=== PATIENT | male | born 1955 | race Caucasian/White ===

== ENCOUNTER 2019-10-29 15:44 | Inpatient (IN) | payer MEDICARE ==
[~2019-10-29] VITALS: Ht 172.7 cm; Wt 64.0 kg
--- NOTE | 2019-10-29 16:00 | NUR ---
PT BIB AMBULANCE FROM [facility] FOR MEDICAL CLEARANCE. PT ON 5150 HOLD, GRAVELY DISABLED. PT A/OX2, CALM, NO DISTRESS NOTED. PT HAS HX OF HYPERTENSION , PACEMAKER ON R CHEST, ASHD,HYPOXIA DUE TO HX OF COPD. V/S STABLE. NO ACUTE DISTRESS NOTED. PT ASSIGNED 1:1 SITTER. PT IN BED SIDE RAILS UP X2 FALL PRECAUTIONS IMPLEMENTED.
[2019-10-29] MEDS ORDERED: ASPI-612 PO (16:22)
[2019-10-29] MEDS ORDERED: ENOX40DI SQ (16:22)
[2019-10-29] MEDS ORDERED: ATOR40TA PO (16:22)
[2019-10-29] MEDS ORDERED: DOCU100C36 PO (16:22)
[2019-10-29] MEDS ORDERED: CLON1TAB12 PO (16:22)
[2019-10-29] MEDS ORDERED: CLOP75TA33 PO (16:22)
--- NOTE | 2019-10-29 16:24 | NUR ---
CALLED U TO GET A ROOM ASSIGNMENT . ROOM ASSIGNED 139 A.
--- NOTE | 2019-10-29 16:36 | NUR ---
GAVE REPORT TO RAE MCCORMICK .
[2019-10-29] MEDS ORDERED: GABA-534 PO (16:41)
[2019-10-29] MEDS ORDERED: INSU100V39 SQ (16:41)
[2019-10-29] MEDS ORDERED: INSU100V7 SQ (16:41)
[2019-10-29] MEDS ORDERED: FURO20TA4 PO (16:41)
[2019-10-29] MEDS ORDERED: PANT40TA4 PO (16:41)
[2019-10-29 17:00] VITALS: BP 109/56
--- NOTE | 2019-10-29 17:00 | NUR ---
Pt. admitted to [facility] , under care of Belongs List completed. ALL BELONGINGS W/ PATIENT.NO COMPLICATIONS DURING TRANSFER.
[2019-10-29] MEDS ORDERED: POLY17PO4 PO (17:01)
[2019-10-29] MEDS ORDERED: [UNRECOGNIZED DRUG - CODE] IVP (17:01)
[2019-10-29] MEDS ORDERED: SPIR25TA6 PO (17:02)
[2019-10-29] MEDS ORDERED: DEXTROSE 50% 50 ML DISP.SYRIN IV PRN (17:45)
[2019-10-29] MEDS ORDERED: LORAZEPAM 0.5 MG TABLET PO PRN (17:45)
[2019-10-29] MEDS ORDERED: MAGNESIUM HYDROXIDE 30 ML LIQUID UDC PO PRN (17:45)
[2019-10-29] MEDS ORDERED: LORAZEPAM 1 MG TABLET PO PRN (17:45)
[2019-10-29] MEDS ORDERED: ACETAMINOPHEN 325 MG TABLET PO PRN (17:45)
[2019-10-29] MEDS ORDERED: MAG HYDROX/AL HYDROX/SIMETH 30 ML LIQUID UDC PO PRN (17:45)
[2019-10-29] MEDS ORDERED: TEMAZEPAM 7.5 MG CAPSULE PO PRN (17:45)
--- NOTE | 2019-10-29 18:20 | NUR ---
GPS: admitting this 64Y male, coming from [facility], patient AOx2-3, patient easily irritable, guarded, needed redirection, advisement was given, patient was seen by Dr. Trivedi and Dr. hatch, orders made and carried out, patient uncooperative during admission, refused to answer assesment question and sign forms, Dr. Trivedi wrote 14 day Hold and gave patient a copy, will continue monitor
--- NOTE | 2019-10-29 18:46 | NUR ---
patient paranoid and delusional, rip off his copy of his 14day hold and verbalizes that it was not existing and his firer watertender is coming tomorrow, will continue monitor
[2019-10-29 20:48] VITALS: BP 96/50
[2019-10-29] MEDS: risperiDONE 1 MG TABLET PO SCH (20:49)
[2019-10-29] MEDS: BLOOD SUGAR DIAGNOSTIC 1 EACH STRIP VI SCH ×3 (20:50→21:39)
[2019-10-29] MEDS: INSULIN REGULAR, HUMAN 300 UNITS/3 ML VIAL SQ PRN (21:19)
--- NOTE | 2019-10-29 21:30 | NUR ---
GPS/RN: RECEIVED PT IN BED ASLEEP, AWAKE TO NAME BUT PT WAS VERY ANGRY WHEN FACE TO FACE INTERVIEW, REFUSED TO TALK AND JUST WANTED TO BE ALONE. PT WAS LEFT TO VENT FEELING. ROUTINE MEDICATIONS WAS INITIALLY REFUSED, PT ALSO REFUSED BLOOD SUGAR CHECK. PT CAME TO NURSING STATION AND ASKED FOR SNACK AND WAS OFFER TO CHECK BLOOD SUGAR AND AGREED. BS/280 WITH 6UNIT INSULIN ADMINISTERED. PT STILL REFUSING ROUTINE MED. EXPLAINED BENEFIT AND RISK FOR NOT TAKING MED. PT WENT BACK TO BED. NO SI INTENT OR THOUGHT OF HURTING SELF OR OTHERS. WILL CONTINUE TO MONITOR.
[2019-10-29] MEDS: GABAPENTIN 300 MG CAPSULE PO SCH (22:00)
[2019-10-30] MEDS: GABAPENTIN 300 MG CAPSULE PO SCH ×3 (06:00→21:03)
[2019-10-30] MEDS: BLOOD SUGAR DIAGNOSTIC 1 EACH STRIP VI SCH ×4 (06:32→20:29)
[2019-10-30 07:30] VITALS: BP 99/59
[2019-10-30 08:36] LABS: BILIRUBIN,TOTAL 0.4 mg/dL (0.2-1.0); CREATININE 0.9 mg/dL (0.6-1.3); POTASSIUM 4.6 mmol/L (3.5-5.1); TOTAL PROTEIN, SERUM 6.8 g/dL (6.4-8.2)
[2019-10-30] MEDS ORDERED: ENOXAPARIN SODIUM 40 MG/0.4 ML DISP.SYRIN SQ SCH (09:00)
[2019-10-30] MEDS: MIRALAX 17 GM POWD.PACK PO SCH (09:44)
[2019-10-30] MEDS: CLOPIDOGREL 75 MG TABLET PO SCH (09:45)
[2019-10-30] MEDS: ATORVASTATIN 40 MG TABLET PO SCH (09:45)
[2019-10-30] MEDS: DOCUSATE SODIUM 100 MG CAPSULE PO SCH ×2 (09:45→17:16)
[2019-10-30] MEDS: FUROSEMIDE 20 MG TABLET PO SCH (09:45)
[2019-10-30] MEDS: ASPIRIN 325 MG TABLET PO SCH (09:45)
[2019-10-30] MEDS: risperiDONE 1 MG TABLET PO SCH ×2 (09:45→20:46)
[2019-10-30] MEDS: PANTOPRAZOLE SODIUM 40 MG TABLET.DR PO SCH (09:45)
[2019-10-30] MEDS: INSULIN GLARGINE,HUM 300 UNITS/3 ML CARTRIDGE SQ SCH ×2 (10:04→20:45)
[2019-10-30] MEDS: INSULIN REGULAR, HUMAN 300 UNIT/3 ML VIAL SQ PRN ×3 (10:05→17:26)
--- NOTE | 2019-10-30 11:08 | NUR ---
Social Work Initial Discharge Plan: Patient has a [address], [place] [address]). Patient is unable to verify address or where he resides. Patient appears to be homeless. This fiction and nonfiction prose writer will find out more information in regards to patient's living arrangement. Patient does not have any contact information at this moment. sanitation worker hosing machinery will work with the patient and the MD regarding appropriate discharge planning. sanitation worker hosing machinery will form a safe and proper discharge.
--- NOTE | 2019-10-30 11:13 | NUR ---
Social Work Note: power lineworker contacted [facility] and requested to speak to foster care social worker Katarzyna Talley, ASW #[id number] ([phone]) but was unavailable. Burr Grinder Jassi was able to give information to this physician underwriter and stated that patient is homeless and was unable to verify address.
--- NOTE | 2019-10-30 11:15 | NUR ---
Social Work Family Contact: Patient does not have any family for this commercial loan underwriter to contact.
[2019-10-30] MEDS: SPIRONOLACTONE 25 MG TABLET PO SCH (11:45)
--- NOTE | 2019-10-30 15:09 | NUR ---
Social Work Individual Therapy Note: groundskeeping maintenance worker met with patient for brief counseling to address patient's delusional thought content. Patient is guarded and is vague with his answers. Patient is disorganized and disoriented. 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 groundskeeping maintenance worker actively listened and provided support.
--- NOTE | 2019-10-30 15:16 | NUR ---
Social Work Coordination: casino gaming worker faxed Román saravia ([phone]) and sent [facility] notes and progress notes. Per Román, he stated that he will get back to this sign writer hand to see if patient is accepted to any of his facilities such as [place] or [place].
[2019-10-30 16:00] VITALS: BP 111/60
--- NOTE | 2019-10-30 16:22 | NUR ---
Social Work Discharge Plan: Per admission, ([phone]) who stated that patient is accepted at [facility].
[2019-10-30] MEDS: INSULIN REGULAR, HUMAN 300 UNITS/3 ML VIAL SQ PRN (20:41)
[2019-10-30 20:54] VITALS: BP 110/63
--- NOTE | 2019-10-30 21:29 | NUR ---
Patient was received in bed, med compliant, cooperative, calm, no behavioral issue. Patient will remain in a psych facility for further evaluation and treatment.
[2019-10-31] MEDS: GABAPENTIN 300 MG CAPSULE PO SCH ×3 (06:00→21:56)
[2019-10-31] MEDS: BLOOD SUGAR DIAGNOSTIC 1 EACH STRIP VI SCH ×4 (06:31→21:24)
[2019-10-31 07:30] VITALS: BP 100/49
[2019-10-31] MEDS: ASPIRIN 325 MG TABLET PO SCH (08:46)
[2019-10-31] MEDS: ATORVASTATIN 40 MG TABLET PO SCH (08:46)
[2019-10-31] MEDS: risperiDONE 1 MG TABLET PO SCH ×2 (08:46→21:18)
[2019-10-31] MEDS: CLOPIDOGREL 75 MG TABLET PO SCH (08:47)
[2019-10-31] MEDS: DOCUSATE SODIUM 100 MG CAPSULE PO SCH ×2 (08:47→16:45)
[2019-10-31] MEDS: FUROSEMIDE 20 MG TABLET PO SCH (08:47)
[2019-10-31] MEDS: PANTOPRAZOLE SODIUM 40 MG TABLET.DR PO SCH (08:47)
[2019-10-31] MEDS: SPIRONOLACTONE 25 MG TABLET PO SCH (08:47)
[2019-10-31] MEDS: MIRALAX 17 GM POWD.PACK PO SCH ×2 (08:48→08:57)
[2019-10-31] MEDS: INSULIN GLARGINE,HUM 300 UNITS/3 ML CARTRIDGE SQ SCH ×2 (08:49→21:41)
--- NOTE | 2019-10-31 09:30 | NUR ---
Gps/Boat Canvas Installer- Patient requested to have his BS check again before givng him his reg. insulin sliding scale, informed it will be high because , he ate a good breakfast,, claimed it is ok, he has someone at home check his glucose. Compliant with his routine am meds. Attended his group therapy.
[2019-10-31] MEDS: INSULIN REGULAR, HUMAN 300 UNIT/3 ML VIAL SQ PRN ×3 (09:35→17:50)
--- NOTE | 2019-10-31 13:00 | NUR ---
Gps/Carriage Rider- Patient tried to pushed exit door again, sounding the alarm , discouraged patient doing so, peers saw them pt. pushing the exit door. Encouraged participating in his group therapy.Monitor for hypo/hyperglycemia.
[2019-10-31 16:00] VITALS: BP 101/56
[2019-10-31] MEDS ORDERED: POTASSIUM CHLORIDE 20 MEQ TAB.PRT.SR PO ONE (19:15)
[2019-10-31 20:00] VITALS: BP 108/66
[2019-10-31] MEDS: INSULIN REGULAR, HUMAN 300 UNITS/3 ML VIAL SQ PRN (21:50)
--- NOTE | 2019-11-01 01:20 | NUR ---
PATIENT RECEIVED IN BED AWAKE. PATIENT COMPLAINT WITH MEDICATION. NO AGGRESSIVE OR COMBATIVE BEHAVIOR NOTED. SAFE ENVIRONMENT PROVIDED. FREQUENT ROUNDING, CLUTTER FREE ENVIRONMENT. BED IN LOWEST POSITION, BED LOCKED, AND BED ALARM ON WHILE IN BED.
[2019-11-01] MEDS: GABAPENTIN 300 MG CAPSULE PO SCH ×3 (06:15→22:01)
[2019-11-01] MEDS: BLOOD SUGAR DIAGNOSTIC 1 EACH STRIP VI SCH ×4 (06:32→20:06)
[2019-11-01 07:30] VITALS: BP 85/45
[2019-11-01] MEDS: INSULIN REGULAR, HUMAN 300 UNIT/3 ML VIAL SQ PRN ×3 (07:54→17:17)
[2019-11-01] MEDS: DOCUSATE SODIUM 100 MG CAPSULE PO SCH ×2 (08:41→16:57)
[2019-11-01] MEDS: INSULIN GLARGINE,HUM 300 UNITS/3 ML CARTRIDGE SQ SCH ×2 (08:41→20:10)
[2019-11-01] MEDS: ATORVASTATIN 40 MG TABLET PO SCH (08:42)
[2019-11-01] MEDS: PANTOPRAZOLE SODIUM 40 MG TABLET.DR PO SCH (08:42)
[2019-11-01] MEDS: risperiDONE 1 MG TABLET PO SCH ×2 (08:42→20:07)
[2019-11-01] MEDS: FUROSEMIDE 20 MG TABLET PO SCH (08:42)
[2019-11-01] MEDS: ASPIRIN 325 MG TABLET PO SCH (08:42)
[2019-11-01] MEDS: CLOPIDOGREL 75 MG TABLET PO SCH (08:42)
[2019-11-01] MEDS: SPIRONOLACTONE 25 MG TABLET PO SCH (08:42)
[2019-11-01] MEDS: MIRALAX 17 GM POWD.PACK PO SCH (08:46)
--- NOTE | 2019-11-01 14:00 | NUR ---
Gps/Applications Support Specialist- Grant DNP, was in to see patient, informed of low b/p , and latest v/s. will review medications. Attended group therapy, participating well. Patient verbalized concerns regarding > BS. , claimed at home he takes only metformin..Complained of Lower ext. are aching , no swelling noted.
--- NOTE | 2019-11-01 15:11 | NUR ---
Social Work Individual Therapy Note: worker's compensation claims examiner met with patient for brief counseling to address patient's delusional thought content. Patient was able to have a meaningful conversation with this ticket writer. Patient continues to have delusional thought content and states that he has a "lines tender" and his lines tender will contact the hospital. worker's compensation claims examiner re-directed the patient to gain insight into his current situation. Patient was unable to recognize or understand. This ticket writer provided active listening.
[2019-11-01 15:18] VITALS: BP 118/73
[2019-11-01 20:05] VITALS: BP 114/50
[2019-11-01] MEDS: INSULIN REGULAR, HUMAN 300 UNITS/3 ML VIAL SQ PRN (20:11)
--- NOTE | 2019-11-01 22:20 | NUR ---
HS BS 301, 10 units Lantus and 8 units coverage administered per sliding scale.
[2019-11-02] MEDS: GABAPENTIN 300 MG CAPSULE PO SCH ×3 (05:28→21:54)
[2019-11-02] MEDS: BLOOD SUGAR DIAGNOSTIC 1 EACH STRIP VI SCH ×4 (06:38→20:15)
[2019-11-02 07:30] VITALS: BP 111/64
[2019-11-02 08:20] LABS: BASOPHILS # (AUTO) 0.1 K/uL (0.0-8.0); EOSINOPHILS # (AUTO) 0.1 K/uL (0.0-0.7); EOSINOPHILS % (AUTO) 0.9 % (0.0-7.0); HEMATOCRIT 32.6 % (36.7-47.1); HEMOGLOBIN 10.9 g/dL (12.5-16.3); LYMPHOCYTES # (AUTO) 1.7 K/uL (20.0-40.0); LYMPHOCYTES % (AUTO) 22.2 % (20.5-51.5); MEAN CORPUSCULAR HEMOGLOBIN 30.5 uug (23.8-33.4); MEAN CORPUSCULAR HGB CONC 33 g/dL (32.5-36.3); MEAN CORPUSCULAR VOLUME 91.3 fL (73.0-96.2); MONOCYTES # (AUTO) 0.6 K/uL (2.0-10.0); MONOCYTES % (AUTO) 7.5 % (0.0-11.0); NEUTROPHILS # (AUTO) 5.3 K/uL (1.8-8.9); NEUTROPHILS % (AUTO) 68.4 % (38.5-71.5); PLATELET COUNT (AUTO) 393 K/uL (152-348); RED BLOOD CELL COUNT(AUTO) 3.57 MIL/uL (4.06-5.63); WHITE BLOOD COUNT (AUTO) 7.7 K/uL (3.6-10.2)
[2019-11-02 08:33] LABS: CREATININE 0.9 mg/dL (0.6-1.3); MAGNESIUM 1.7 mg/dL (1.8-2.4); PHOSPHOROUS 4.3 mg/dL (2.5-4.9)
[2019-11-02] MEDS: CLOPIDOGREL 75 MG TABLET PO SCH (08:52)
[2019-11-02] MEDS: ASPIRIN 325 MG TABLET PO SCH (08:52)
[2019-11-02] MEDS: ATORVASTATIN 40 MG TABLET PO SCH (08:52)
[2019-11-02] MEDS: DOCUSATE SODIUM 100 MG CAPSULE PO SCH ×2 (08:52→17:15)
[2019-11-02] MEDS: SPIRONOLACTONE 25 MG TABLET PO SCH (08:52)
[2019-11-02] MEDS: PANTOPRAZOLE SODIUM 40 MG TABLET.DR PO SCH (08:52)
[2019-11-02] MEDS: risperiDONE 1 MG TABLET PO SCH ×2 (08:53→20:09)
[2019-11-02] MEDS: INSULIN GLARGINE,HUM 300 UNITS/3 ML CARTRIDGE SQ SCH ×2 (08:59→20:14)
[2019-11-02] MEDS ORDERED: MAGNESIUM OXIDE 400 MG TABLET PO ONE (09:00)
[2019-11-02] MEDS: FUROSEMIDE 20 MG TABLET PO SCH (09:11)
[2019-11-02] MEDS: MIRALAX 17 GM POWD.PACK PO SCH (09:11)
[2019-11-02] MEDS: INSULIN REGULAR, HUMAN 300 UNIT/3 ML VIAL SQ PRN ×3 (12:09→17:56)
[2019-11-02 16:00] VITALS: BP 106/52
--- NOTE | 2019-11-02 16:31 | NUR ---
GPS/RN: PT NOTED RESTING AND DENIED SI, OR THOUGHT OF HURTING SELF AND OTHERS. PT WAS A BIT ANGRY OVER INSULIN NOT GIVEN IN THE MORNING INSTATED LANTUS ORDERED. PT WAS REDIRECT AND EXPLAINED DUE ORDERS. BLOOD SUGAR WAS A BIT ELEVATED AT 315D/L WITH 12UNIT OF REGULAR INSULIN GIVEN. PT COOPERATIVE WITH ROUTINE MEDICATIONS AND ALL CARE AT THIS TIME. WILL MONITOR AND Q/15MINS HEAD COUNT CONTINUE.
--- NOTE | 2019-11-02 18:31 | NUR ---
PT BLOOD SUGAR AT 1630 AT 182/DL WITH 3UNIT INSULIN GIVEN PER SLIDING SCALE. PT UP IN DINNING ROOM, EAT GOOD AND WATCHING TV WITH PEERS.
[2019-11-02] MEDS: INSULIN REGULAR, HUMAN 300 UNITS/3 ML VIAL SQ PRN (20:13)
[2019-11-02 20:25] VITALS: BP 110/64
[2019-11-02] MEDS ORDERED: OLANZAPINE 10 MG VIAL IM STA (21:39)
[2019-11-02] MEDS ORDERED: LORAZEPAM 2 MG/1 ML VIAL IM STA (21:39)
--- NOTE | 2019-11-02 22:55 | NUR ---
Chemical Restraint Note: Pt repeatedly attempted to AWOL by banging on and trying to break open the emergency exit door. When redirected, Pt responded in anger and became agitated. Pt threatened staff, yelling that he was "Going to leave tonight or someone is going to get fucked up." Calming measures were attempted but Pt continued to be threatening and postured toward this screen writer. Security was called to aid staff in assisting the Pt back to his room as he was causing a disruption in the milieu and continued to refuse redirection and contract for safety. Dr Moore notified of Pt's behavior, Zyprexa 5mg and Ativan 1mg IM ordered and carried out. 2 security assisted 2 [facility] staff in administering IM as Pt continued to be agitated and unpredictable. Hands on Pt for Less than 1 minute during medication administration. No injuries occurred to pt or staff. Pt was monitored Q 15 minutes, and medication was minimally effective as Pt remained put of bed, pacing, and threatening the AWOL the unit. Pt remains uncooperative and refused VS after IM. Will continue to closely monitor.
[2019-11-03] MEDS ORDERED: OLANZAPINE 10 MG VIAL IM STA (02:10)
[2019-11-03] MEDS ORDERED: LORAZEPAM 2 MG/1 ML VIAL IM STA (02:10)
--- NOTE | 2019-11-03 03:19 | NUR ---
Chemical Restraint Note 2.0: Pt continued to be loud, restless, delusional, and unable to redirect. Pt became fixated on this marine underwriter and displayed obsessive behavior. Pt continued to bang on all of the exit doors to the unit, yelling and repeating, "I have to get back to my ranch, I am going to leave and I don't care how many people try to stop me, I kill all of you!" Pt remained uncontrollable and unpredictable, refusing redirection and refusing to contract for safety. Pt refused to stay in his room for his safety as well the safety of others, Dr Moore notified of Pt's behavior and Zyprexa 10mg and Ativan 1mg ordered and carried out. Security assisted with IM administration as Pt was threatening and combative with the IM process. Hands on Pt less than 30 seconds for medication administration, no injuries to Pt or staff sustained. Pt again refused VS/BP, but is noted to be resting comfortably on his bed at this time, breathing even and unlabored. Will continue to closely monitor.
[2019-11-03] MEDS: GABAPENTIN 300 MG CAPSULE PO SCH ×3 (05:41→22:00)
--- NOTE | 2019-11-03 06:14 | NUR ---
2nd IM ineffective, Pt slept 0 hours, remains uncooperative and non-compliant with staff direction.
[2019-11-03] MEDS: BLOOD SUGAR DIAGNOSTIC 1 EACH STRIP VI SCH ×4 (06:30→22:49)
[2019-11-03 07:30] VITALS: BP 101/57
[2019-11-03] MEDS: SPIRONOLACTONE 25 MG TABLET PO SCH (09:00)
[2019-11-03] MEDS: MIRALAX 17 GM POWD.PACK PO SCH (09:00)
[2019-11-03] MEDS: ASPIRIN 325 MG TABLET PO SCH (09:00)
[2019-11-03] MEDS: PANTOPRAZOLE SODIUM 40 MG TABLET.DR PO SCH (09:00)
[2019-11-03] MEDS: DOCUSATE SODIUM 100 MG CAPSULE PO SCH ×2 (09:00→16:51)
[2019-11-03] MEDS: CLOPIDOGREL 75 MG TABLET PO SCH (09:00)
[2019-11-03] MEDS: risperiDONE 1 MG TABLET PO SCH ×2 (09:00→21:00)
[2019-11-03] MEDS: INSULIN GLARGINE,HUM 300 UNITS/3 ML CARTRIDGE SQ SCH ×2 (09:00→22:53)
[2019-11-03] MEDS: FUROSEMIDE 20 MG TABLET PO SCH (09:00)
[2019-11-03] MEDS: ATORVASTATIN 40 MG TABLET PO SCH (09:00)
--- NOTE | 2019-11-03 09:44 | NUR ---
patient is to sleepy. assisted to bed with 3 nurses help. held all po meds. held insulin due to patient ate only 25% of breakfast this morning. charge nurse aware.
[2019-11-03] MEDS: INSULIN REGULAR, HUMAN 300 UNIT/3 ML VIAL SQ PRN ×3 (11:19→16:47)
--- NOTE | 2019-11-03 11:45 | NUR ---
patient still sleeping unable to eat lunch. blood sugar 219mg/dl. 6 units Regular insulin held. charge nurse aware. continue monitoring for safety.
--- NOTE | 2019-11-03 12:57 | NUR ---
Gps/Miner Pick- Grant CORREA, was into see patient, informed patient is sleepy since this morning. unable to take meds and food. held all po meds and insulin.
[2019-11-03 16:27] VITALS: BP 95/50
--- NOTE | 2019-11-03 17:40 | NUR ---
patient is awake now. 1700 pm po meds given. blood sugar 135mg/dl. regular insulin 2 units given. patient ate dinner. resting in bed comfortably.
[2019-11-03 19:59] VITALS: BP 95/52
--- NOTE | 2019-11-03 20:00 | NUR ---
RECEIVED PATIENT IN HIS BED SLEEPING BUT EASILY AROUSABLE. PATIENT ONLY ANSWER WITH "YES" OR "NO" BUT NODDING HIS HEAD. PATIENT WAS REASSURED FOR HIS SAFETY. SAFETY AND FALL PRECAUTION IN PLACE. V/S STABLE AT THIS TIME. WILL CONTINUE TO MONITOR.
--- NOTE | 2019-11-03 22:55 | NUR ---
PATIENT CONTINUE SLEEPING IN HIS BED, BUT RESPONSIVE AND AROUSABLE TO LIGHT TOUCH. HE WAS ABLE TO COMPLY WITH ACCU CHECKS, WITH RESULTS OF 195. PATIENT WAS GIVEN LANTUS 10 UNITS AR ORDERED BY ; HOWEVER, REGULAR INSULIN SLIDING SCALE WAS HELD D/T PT REFUSING SNACKS AT THIS TIME. RISPERIDONE AND GABAPENTIN WERE NOT GIVEN D/T PATIENT SLEEPING AT THIS TIME. WILL CONTINUE TO MONITOR CLOSELY.
[2019-11-04] MEDS: GABAPENTIN 300 MG CAPSULE PO SCH ×3 (06:20→21:30)
[2019-11-04] MEDS: BLOOD SUGAR DIAGNOSTIC 1 EACH STRIP VI SCH ×4 (06:37→20:32)
[2019-11-04 07:30] VITALS: BP 106/39
[2019-11-04] MEDS: DOCUSATE SODIUM 100 MG CAPSULE PO SCH ×2 (08:26→16:43)
[2019-11-04] MEDS: PANTOPRAZOLE SODIUM 40 MG TABLET.DR PO SCH (08:27)
[2019-11-04] MEDS: risperiDONE 1 MG TABLET PO SCH ×2 (08:27→20:12)
[2019-11-04] MEDS: FUROSEMIDE 20 MG TABLET PO SCH (08:27)
[2019-11-04] MEDS: MIRALAX 17 GM POWD.PACK PO SCH (08:27)
[2019-11-04] MEDS: ATORVASTATIN 40 MG TABLET PO SCH (08:27)
[2019-11-04] MEDS: SPIRONOLACTONE 25 MG TABLET PO SCH (08:27)
[2019-11-04] MEDS: ASPIRIN 325 MG TABLET PO SCH (08:27)
[2019-11-04] MEDS: CLOPIDOGREL 75 MG TABLET PO SCH (08:27)
[2019-11-04] MEDS: INSULIN REGULAR, HUMAN 300 UNIT/3 ML VIAL SQ PRN ×3 (08:29→18:13)
[2019-11-04] MEDS: INSULIN GLARGINE,HUM 300 UNITS/3 ML CARTRIDGE SQ SCH ×2 (08:34→20:16)
--- NOTE | 2019-11-04 12:44 | NUR ---
GPS: RECEIVED PATIENT IN HIS ROOM, COMPLIANT WITH MEDICATION, ON MONITORING FOR AWOL RISK , PATIENT TRANSFERED [place] DIFFERENT ROOM AND PATIENT WAS OK WITH IT, NO DISTRESS AT THIS TIME
[2019-11-04 20:00] VITALS: BP 114/64
[2019-11-04] MEDS: INSULIN REGULAR, HUMAN 300 UNITS/3 ML VIAL SQ PRN (20:20)
--- NOTE | 2019-11-04 22:30 | NUR ---
received to care, watching tv, pleasant and appropriate, upon approach. compliant with medications and staff direction. as of 2229, he appears to be asleep, intermittently. no distress noted. will continue to monitor closely.
--- NOTE | 2019-11-05 03:18 | NUR ---
Social Work Individual Therapy: channel worker met with patient for brief counseling to address patients delusional thought content. Patient is guarded and is vague with his answers. Patient states that he has a home in "[place]", however; patient does not. This senior copywriter provided with reality orientation. Patient presented angry afterwards and did not want to further engage with this senior copywriter.
[2019-11-05] MEDS: GABAPENTIN 300 MG CAPSULE PO SCH ×3 (06:00→22:26)
--- NOTE | 2019-11-05 06:00 | NUR ---
slept 8.0 hours, total. refused AM gabapentin. no distress noted.
[2019-11-05] MEDS: BLOOD SUGAR DIAGNOSTIC 1 EACH STRIP VI SCH ×4 (06:24→20:34)
[2019-11-05 07:30] VITALS: BP 94/51
--- NOTE | 2019-11-05 07:30 | NUR ---
RECIEVED PT WATCHING TV IN THE ACTIVITY ROOM, AWAKE, ALERT AND ORIENTEDX3. APPEARS IN GOOD SPIRIT. NO APPARENT DISTRESS NOTED.
[2019-11-05] MEDS: INSULIN REGULAR, HUMAN 300 UNIT/3 ML VIAL SQ PRN ×3 (08:28→17:21)
[2019-11-05] MEDS: INSULIN GLARGINE,HUM 300 UNITS/3 ML CARTRIDGE SQ SCH ×2 (08:29→20:33)
[2019-11-05] MEDS: PANTOPRAZOLE SODIUM 40 MG TABLET.DR PO SCH (08:30)
[2019-11-05] MEDS: CLOPIDOGREL 75 MG TABLET PO SCH (08:30)
[2019-11-05] MEDS: DOCUSATE SODIUM 100 MG CAPSULE PO SCH ×2 (08:30→17:22)
[2019-11-05] MEDS: FUROSEMIDE 20 MG TABLET PO SCH (08:30)
[2019-11-05] MEDS: ATORVASTATIN 40 MG TABLET PO SCH (08:30)
[2019-11-05] MEDS: MIRALAX 17 GM POWD.PACK PO SCH (08:35)
[2019-11-05] MEDS ORDERED: risperiDONE 1 MG TABLET PO SCH (09:00)
[2019-11-05] MEDS: SPIRONOLACTONE 25 MG TABLET PO SCH (10:32)
[2019-11-05] MEDS: ASPIRIN 325 MG TABLET PO SCH (10:33)
[2019-11-05 16:00] VITALS: BP 112/63
--- NOTE | 2019-11-05 18:00 | NUR ---
pt participated in group activity and joined with group in eating dinner.
[2019-11-05 20:12] VITALS: BP 123/73
[2019-11-05] MEDS: QUETIAPINE FUMARATE 25 MG TABLET PO SCH (20:24)
[2019-11-05] MEDS: INSULIN REGULAR, HUMAN 300 UNITS/3 ML VIAL SQ PRN (20:35)
--- NOTE | 2019-11-05 23:00 | NUR ---
received to care, watching tv, pleasant and appropriate, upon approach. compliant with medications and staff direction. as of 2299, he appears to be asleep, intermittently. no distress noted. will continue to monitor closely.
--- NOTE | 2019-11-06 06:00 | NUR ---
slept 6.5 hours, total. continues to sleep. no distress noted.
[2019-11-06] MEDS: GABAPENTIN 300 MG CAPSULE PO SCH ×3 (06:21→22:05)
[2019-11-06] MEDS: BLOOD SUGAR DIAGNOSTIC 1 EACH STRIP VI SCH ×4 (06:38→20:38)
[2019-11-06 07:30] VITALS: BP 104/56
--- NOTE | 2019-11-06 07:30 | NUR ---
RECIEVED PT LYING IN BED, VERY SOUND ASLEEP. AROUSABLLE TO NAME. NO APPARENT DISTRESS NOTED.
[2019-11-06] MEDS: SPIRONOLACTONE 25 MG TABLET PO SCH (08:29)
[2019-11-06] MEDS: FUROSEMIDE 20 MG TABLET PO SCH (08:30)
[2019-11-06] MEDS: ASPIRIN 325 MG TABLET PO SCH (08:30)
[2019-11-06] MEDS: QUETIAPINE FUMARATE 25 MG TABLET PO SCH (08:30)
[2019-11-06] MEDS: DOCUSATE SODIUM 100 MG CAPSULE PO SCH ×2 (08:30→17:14)
[2019-11-06] MEDS: MIRALAX 17 GM POWD.PACK PO SCH (08:31)
[2019-11-06] MEDS: CLOPIDOGREL 75 MG TABLET PO SCH (08:31)
[2019-11-06] MEDS: INSULIN REGULAR, HUMAN 300 UNIT/3 ML VIAL SQ PRN ×3 (08:33→17:14)
[2019-11-06] MEDS: INSULIN GLARGINE,HUM 300 UNITS/3 ML CARTRIDGE SQ SCH ×2 (08:35→20:46)
[2019-11-06] MEDS: PANTOPRAZOLE SODIUM 40 MG TABLET.DR PO SCH (08:41)
[2019-11-06] MEDS: ATORVASTATIN 40 MG TABLET PO SCH (08:41)
--- NOTE | 2019-11-06 09:30 | NUR ---
PT IS COMPLIANT IN TAKING HIS MEDICATIONS. APPEARS IN GOOD SPIRIT.
--- NOTE | 2019-11-06 14:23 | NUR ---
Social Work Note/Substance Abuse Intervention: Patient was provided with a brief substance abuse intervention and referred to the following substance abuse programs: [facility] ([phone]); [facility] [address] [place] [address] ([phone]); [facility] [address] [facility] [address] ([phone]); [facility] ([phone]); [facility] ([phone]); [facility] ([phone]); [facility] ([phone]).
[2019-11-06 16:00] VITALS: BP 102/60
[2019-11-06 19:50] VITALS: BP 115/57
[2019-11-06] MEDS: INSULIN REGULAR, HUMAN 300 UNITS/3 ML VIAL SQ PRN (20:44)
[2019-11-06] MEDS: QUETIAPINE FUMARATE 100 MG TABLET PO SCH (20:46)
[2019-11-07] MEDS: GABAPENTIN 300 MG CAPSULE PO SCH ×3 (06:00→21:16)
[2019-11-07] MEDS: BLOOD SUGAR DIAGNOSTIC 1 EACH STRIP VI SCH ×4 (06:43→21:03)
[2019-11-07 06:57] LABS: BASOPHILS # (AUTO) 0.1 K/uL (0.0-8.0); BASOPHILS % (AUTO) 0.8 % (0.0-2.0); EOSINOPHILS # (AUTO) 0.1 K/uL (0.0-0.7); EOSINOPHILS % (AUTO) 1.4 % (0.0-7.0); HEMATOCRIT 32.1 % (36.7-47.1); HEMOGLOBIN 10.8 g/dL (12.5-16.3); LYMPHOCYTES # (AUTO) 1.8 K/uL (20.0-40.0); LYMPHOCYTES % (AUTO) 27.7 % (20.5-51.5); MEAN CORPUSCULAR HEMOGLOBIN 30.5 uug (23.8-33.4); MEAN CORPUSCULAR HGB CONC 34 g/dL (32.5-36.3); MEAN CORPUSCULAR VOLUME 91.1 fL (73.0-96.2); MONOCYTES # (AUTO) 0.5 K/uL (2.0-10.0); MONOCYTES % (AUTO) 8.3 % (0.0-11.0); NEUTROPHILS # (AUTO) 3.9 K/uL (1.8-8.9); NEUTROPHILS % (AUTO) 61.8 % (38.5-71.5); PLATELET COUNT (AUTO) 264 K/uL (152-348); RED BLOOD CELL COUNT(AUTO) 3.53 MIL/uL (4.06-5.63); WHITE BLOOD COUNT (AUTO) 6.3 K/uL (3.6-10.2)
[2019-11-07 07:30] VITALS: BP 129/66
[2019-11-07 07:36] LABS: BILIRUBIN,TOTAL 0.4 mg/dL (0.2-1.0); MAGNESIUM 1.5 mg/dL (1.8-2.4); PHOSPHOROUS 4.2 mg/dL (2.5-4.9); POTASSIUM 4.7 mmol/L (3.5-5.1); TOTAL PROTEIN, SERUM 6.6 g/dL (6.4-8.2)
[2019-11-07] MEDS: INSULIN GLARGINE,HUM 300 UNITS/3 ML CARTRIDGE SQ SCH (08:22)
[2019-11-07] MEDS: DOCUSATE SODIUM 100 MG CAPSULE PO SCH ×2 (08:23→17:20)
[2019-11-07] MEDS: ASPIRIN 325 MG TABLET PO SCH (08:23)
[2019-11-07] MEDS: MIRALAX 17 GM POWD.PACK PO SCH (08:23)
[2019-11-07] MEDS: FUROSEMIDE 20 MG TABLET PO SCH (08:24)
[2019-11-07] MEDS: QUETIAPINE FUMARATE 100 MG TABLET PO SCH ×2 (08:24→20:56)
[2019-11-07] MEDS: PANTOPRAZOLE SODIUM 40 MG TABLET.DR PO SCH (08:24)
[2019-11-07] MEDS: CLOPIDOGREL 75 MG TABLET PO SCH (08:24)
[2019-11-07] MEDS: SPIRONOLACTONE 25 MG TABLET PO SCH (08:24)
[2019-11-07] MEDS ORDERED: MAGNESIUM OXIDE 400 MG TABLET PO ONE (10:30)
[2019-11-07] MEDS: INSULIN REGULAR, HUMAN 300 UNIT/3 ML VIAL SQ PRN ×2 (12:02→17:22)
--- NOTE | 2019-11-07 15:25 | NUR ---
Social Work Firearms Report: Lanolin Plant Operator completed and submitted a [employer] firearms report for 5250 grave disability certification. A copy of report has been placed in patient chart.
--- NOTE | 2019-11-07 15:25 | NUR ---
GPS;Patient awake and alert. VS are stable. Medication compliant. Mood is angry and irritable. Aware of possible discharge on Monday. 2D echo completed. Patient is medication compliant but refused to take anymore Neurontin. No acute behavior issues or distress noted so far. Continuing to monitor patient.
[2019-11-07 15:31] VITALS: BP 123/62
[2019-11-07 20:00] VITALS: BP 117/79
[2019-11-07] MEDS ORDERED: ATORVASTATIN 20 MG TABLET PO SCH (21:00)
[2019-11-07] MEDS ORDERED: QUETIAPINE FUMARATE 25 MG TABLET PO SCH (21:00)
[2019-11-07] MEDS ORDERED: INSULIN GLARGINE,HUM 300 UNITS/3 ML CARTRIDGE SQ SCH (21:00)
[2019-11-07] MEDS: INSULIN REGULAR, HUMAN 300 UNITS/3 ML VIAL SQ PRN (21:08)
--- NOTE | 2019-11-07 23:00 | NUR ---
received to care, watching tv, pleasant and appropriate, upon approach. compliant with medications and staff direction. as of 2299, he appears to be asleep. no distress noted. will continue to monitor closely.
--- NOTE | 2019-11-08 06:00 | NUR ---
slept 7.25 hours, total. continues to sleep. no distress noted.
[2019-11-08] MEDS: GABAPENTIN 300 MG CAPSULE PO SCH ×3 (06:02→21:38)
[2019-11-08] MEDS: BLOOD SUGAR DIAGNOSTIC 1 EACH STRIP VI SCH ×4 (06:03→20:36)
[2019-11-08] MEDS: QUETIAPINE FUMARATE 25 MG TABLET PO SCH (08:36)
[2019-11-08] MEDS: CLOPIDOGREL 75 MG TABLET PO SCH (08:36)
[2019-11-08] MEDS: FUROSEMIDE 20 MG TABLET PO SCH (08:36)
[2019-11-08] MEDS: DOCUSATE SODIUM 100 MG CAPSULE PO SCH ×2 (08:36→17:00)
[2019-11-08] MEDS: PANTOPRAZOLE SODIUM 40 MG TABLET.DR PO SCH (08:36)
[2019-11-08] MEDS: SPIRONOLACTONE 25 MG TABLET PO SCH (08:37)
[2019-11-08] MEDS: ASPIRIN 325 MG TABLET PO SCH (08:38)
[2019-11-08] MEDS: MIRALAX 17 GM POWD.PACK PO SCH (08:39)
[2019-11-08] MEDS: INSULIN REGULAR, HUMAN 300 UNIT/3 ML VIAL SQ PRN ×3 (08:45→17:21)
[2019-11-08] MEDS: INSULIN GLARGINE,HUM 300 UNITS/3 ML CARTRIDGE SQ SCH ×2 (08:47→20:40)
[2019-11-08] MEDS ORDERED: QUETIAPINE FUMARATE 25 MG TABLET PO SCH (09:00)
[2019-11-08 10:01] VITALS: BP 124/74
[2019-11-08] MEDS: METOPROLOL SUCCINATE XL 25 MG TAB.SR.24H PO SCH (12:58)
--- NOTE | 2019-11-08 15:20 | NUR ---
Social Work Individual Therapy: child welfare worker met with patient for brief counseling to address patients delusional thought content. Patient is withdrawn. This service writer advisor conversated with patient about his discharge plan and patient continues to stated that he has a place in [place], however; patient is homeless. This service writer advisor educated patient on the importance of a safety placement. Patient agreed with this service writer advisor. Patient reports that he has been feeling better. This service writer advisor provided emotional support and guidance.
[2019-11-08 15:36] VITALS: BP 103/62
[2019-11-08] MEDS: INSULIN REGULAR, HUMAN 300 UNITS/3 ML VIAL SQ PRN (20:39)
[2019-11-08] MEDS: QUETIAPINE FUMARATE 100 MG TABLET PO SCH (20:46)
[2019-11-08] MEDS: ATORVASTATIN 40 MG TABLET PO SCH (20:48)
[2019-11-08 20:51] VITALS: BP 102/50
[2019-11-08] MEDS ORDERED: ATORVASTATIN 20 MG TABLET PO SCH (21:00)
[2019-11-09] MEDS: GABAPENTIN 300 MG CAPSULE PO SCH ×3 (06:00→22:00)
[2019-11-09] MEDS: BLOOD SUGAR DIAGNOSTIC 1 EACH STRIP VI SCH ×4 (06:39→20:46)
[2019-11-09 07:30] VITALS: BP 111/60
[2019-11-09] MEDS: CLOPIDOGREL 75 MG TABLET PO SCH (08:12)
[2019-11-09] MEDS: ASPIRIN 81 MG TAB.CHEW PO SCH (08:12)
[2019-11-09] MEDS: DOCUSATE SODIUM 100 MG CAPSULE PO SCH ×2 (08:12→17:00)
[2019-11-09] MEDS: FUROSEMIDE 20 MG TABLET PO SCH (08:12)
[2019-11-09] MEDS: PANTOPRAZOLE SODIUM 40 MG TABLET.DR PO SCH (08:12)
[2019-11-09] MEDS: QUETIAPINE FUMARATE 25 MG TABLET PO SCH (08:13)
[2019-11-09] MEDS: MIRALAX 17 GM POWD.PACK PO SCH ×2 (08:13→09:00)
[2019-11-09] MEDS: SPIRONOLACTONE 25 MG TABLET PO SCH (08:14)
[2019-11-09] MEDS: LOSARTAN POTASSIUM 25 MG TABLET PO SCH ×2 (08:22→09:00)
[2019-11-09] MEDS: METOPROLOL SUCCINATE XL 25 MG TAB.SR.24H PO SCH ×2 (08:23→09:00)
[2019-11-09] MEDS ORDERED: ASPIRIN 325 MG TABLET PO SCH (09:00)
[2019-11-09] MEDS ORDERED: INSULIN GLARGINE,HUM 300 UNITS/3 ML CARTRIDGE SQ SCH (09:00)
[2019-11-09] MEDS: INSULIN REGULAR, HUMAN 300 UNIT/3 ML VIAL SQ PRN ×2 (11:56→17:11)
--- NOTE | 2019-11-09 12:19 | NUR ---
GPS/RN: PT RECEIVED UP IN BED, A/OX3. DENIED SI, OR THOUGHT OF HARMING SELF OR OTHERS. PT NOTED EASILY ANGERED BY ROOMMATE, ENCOURAGED TO VENT OUT FEELINGS AND REDIRECTED. PER NIGHT NURSE PT REQUESTING FOR METFORMIN DUE TO BLOOD SUGAR FLUCTUATING. PT WAS NOTED VERY CONCERN ABOUT HIS HEALTH AND WANTED TO KNOWN WHY HIS TAKING ALL THIS MEDICATIONS. ADVISED OF THE BENEFIT OF MEDICATIONS AND WILL NOTIFY MD. PT REFUSED BLOOD PRESSURE MEDS DUE TO LEVEL WAS AT 111/60, HR 60. PT WAS COOPERATIVE WITH OTHER ROUTINE MEDS. ABOUT 1045 UTILITY TRACTOR OPERATOR WAS HERE AND ASSESSED PT, LABS WERE ORDERED FOR TOMORROW. NOTIFIED DR OF B/P MEDS. PT ALSO REQUESTED METFORMIN FROM UTILITY TRACTOR OPERATOR AND WAS ADVISED TO CONTINUE ALL CURRENT MEDS, TO POSSIBLY RE-STAT WHEN D/C. PT BLOOD SUGAR WAS 267/dl AT 1145. AND 9 UNIT INSULIN ADMINISTERED. NO OTHER BEHAVIOR AT THIS TIME, WILL CONTINUE MONITOR.
[2019-11-09 16:00] VITALS: BP 107/61
[2019-11-09] MEDS: ATORVASTATIN 40 MG TABLET PO SCH (20:19)
[2019-11-09] MEDS: QUETIAPINE FUMARATE 100 MG TABLET PO SCH (20:19)
[2019-11-09 20:23] VITALS: BP 118/72
[2019-11-09] MEDS: INSULIN REGULAR, HUMAN 300 UNITS/3 ML VIAL SQ PRN (20:54)
[2019-11-09] MEDS: INSULIN GLARGINE,HUM 300 UNITS/3 ML CARTRIDGE SQ SCH (20:55)
[2019-11-10] MEDS: GABAPENTIN 300 MG CAPSULE PO SCH ×4 (06:00→22:00)
[2019-11-10] MEDS: BLOOD SUGAR DIAGNOSTIC 1 EACH STRIP VI SCH ×4 (06:37→20:22)
[2019-11-10 07:30] VITALS: BP 105/64
[2019-11-10 07:44] LABS: POTASSIUM 4.4 mmol/L (3.5-5.1)
--- NOTE | 2019-11-10 07:53 | NUR ---
GPS: received patient AOX2-3, asleep on bed no distress at this time
[2019-11-10] MEDS: QUETIAPINE FUMARATE 25 MG TABLET PO SCH (08:31)
[2019-11-10] MEDS: FUROSEMIDE 20 MG TABLET PO SCH (08:31)
[2019-11-10] MEDS: MIRALAX 17 GM POWD.PACK PO SCH ×2 (08:32→08:38)
[2019-11-10] MEDS: ASPIRIN 81 MG TAB.CHEW PO SCH (08:32)
[2019-11-10] MEDS: DOCUSATE SODIUM 100 MG CAPSULE PO SCH ×2 (08:32→16:02)
[2019-11-10] MEDS: PANTOPRAZOLE SODIUM 40 MG TABLET.DR PO SCH (08:32)
[2019-11-10] MEDS: CLOPIDOGREL 75 MG TABLET PO SCH (08:32)
[2019-11-10] MEDS: INSULIN REGULAR, HUMAN 300 UNIT/3 ML VIAL SQ PRN ×2 (08:33→11:45)
[2019-11-10] MEDS: SPIRONOLACTONE 25 MG TABLET PO SCH (08:40)
[2019-11-10] MEDS: INSULIN GLARGINE,HUM 300 UNITS/3 ML CARTRIDGE SQ SCH ×2 (08:45→20:27)
[2019-11-10] MEDS: METOPROLOL SUCCINATE XL 25 MG TAB.SR.24H PO SCH (09:00)
[2019-11-10] MEDS: LOSARTAN POTASSIUM 25 MG TABLET PO SCH (09:00)
[2019-11-10 15:25] VITALS: BP 103/55
--- NOTE | 2019-11-10 17:54 | NUR ---
patient remain calm in his room, patient denies SI and HI, no distress at this time
[2019-11-10] MEDS: QUETIAPINE FUMARATE 100 MG TABLET PO SCH (20:13)
[2019-11-10] MEDS: ATORVASTATIN 40 MG TABLET PO SCH (20:13)
[2019-11-10] MEDS: INSULIN REGULAR, HUMAN 300 UNITS/3 ML VIAL SQ PRN (20:28)
[2019-11-10 20:44] VITALS: BP 118/68
[2019-11-11] MEDS: GABAPENTIN 300 MG CAPSULE PO SCH ×4 (06:00→21:26)
[2019-11-11] MEDS: BLOOD SUGAR DIAGNOSTIC 1 EACH STRIP VI SCH ×4 (06:34→20:41)
[2019-11-11 07:30] VITALS: BP 100/64
[2019-11-11] MEDS: ASPIRIN 81 MG TAB.CHEW PO SCH (09:08)
[2019-11-11] MEDS: CLOPIDOGREL 75 MG TABLET PO SCH (09:08)
[2019-11-11] MEDS: DOCUSATE SODIUM 100 MG CAPSULE PO SCH ×2 (09:08→16:36)
[2019-11-11] MEDS: FUROSEMIDE 20 MG TABLET PO SCH (09:09)
[2019-11-11] MEDS: MIRALAX 17 GM POWD.PACK PO SCH (09:18)
[2019-11-11] MEDS: PANTOPRAZOLE SODIUM 40 MG TABLET.DR PO SCH (09:19)
[2019-11-11] MEDS: METOPROLOL SUCCINATE XL 25 MG TAB.SR.24H PO SCH (09:19)
[2019-11-11] MEDS: LOSARTAN POTASSIUM 25 MG TABLET PO SCH (09:20)
[2019-11-11] MEDS: QUETIAPINE FUMARATE 25 MG TABLET PO SCH (09:29)
[2019-11-11] MEDS: SPIRONOLACTONE 25 MG TABLET PO SCH (09:29)
[2019-11-11] MEDS: INSULIN GLARGINE,HUM 300 UNITS/3 ML CARTRIDGE SQ SCH ×2 (09:34→20:48)
[2019-11-11] MEDS: INSULIN REGULAR, HUMAN 300 UNIT/3 ML VIAL SQ PRN ×2 (11:16→16:34)
--- NOTE | 2019-11-11 13:34 | NUR ---
Patient hold discharge today as per coordinator of [facility]. Charge nurse aware. Continue care in the unit. will ff up and endorse the status. Patient is alert and orientedx3. no complaint of pain/discomfort noted. will continue monitor
[2019-11-11 16:00] VITALS: BP 108/64
[2019-11-11] MEDS: QUETIAPINE FUMARATE 100 MG TABLET PO SCH (20:40)
[2019-11-11] MEDS: ATORVASTATIN 40 MG TABLET PO SCH (20:41)
[2019-11-11 20:55] VITALS: BP 121/69
[2019-11-11] MEDS: INSULIN REGULAR, HUMAN 300 UNITS/3 ML VIAL SQ PRN (21:00)
[2019-11-11] MEDS ORDERED: MAGNESIUM OXIDE 400 MG TABLET PO SCH (21:00)
--- NOTE | 2019-11-11 23:30 | NUR ---
RECEIVED PATIENT IN ACTIVITY ROOM INTERACTING WITH PEERS. NOTED EASILY ANGERED WHEN WHAT HE WANTS ARE NOT GIVEN TO HIM FAST HE WILL LIKE.STILL EXHIBITS SOME DELUSIONS SAYING HE HAS A RANCH HE NEEDS TO GO TO.WAS HOWEVER MED COMPLIANT EXCEPT FOR GABAPENTIN WHICH HE SAID' I HAVE TO PUT MY FOOT DOWN ON THAT ONE. AM NOT TAKING IT'. BLOOD SUGAR CHECK WAS 211 AND INSULIN COVERAGE PER SLIDING SCALE AND LANTUS WAS GIVEN PRESCRIBED. WILL CONTINUE TO MONITOR .
[2019-11-12] MEDS: GABAPENTIN 300 MG CAPSULE PO SCH (06:00)
[2019-11-12] MEDS: BLOOD SUGAR DIAGNOSTIC 1 EACH STRIP VI SCH ×2 (06:09→11:24)
--- NOTE | 2019-11-12 06:20 | NUR ---
SLEPT FOR ABOUT 6:00 HOURS.REFUSED BOTH GABAPENTIN AND A SHOWER.
[2019-11-12 07:43] VITALS: BP 114/60
[2019-11-12] MEDS: ASPIRIN 81 MG TAB.CHEW PO SCH (08:23)
[2019-11-12] MEDS: FUROSEMIDE 20 MG TABLET PO SCH (08:23)
[2019-11-12] MEDS: PANTOPRAZOLE SODIUM 40 MG TABLET.DR PO SCH (08:23)
[2019-11-12] MEDS: CLOPIDOGREL 75 MG TABLET PO SCH (08:24)
[2019-11-12] MEDS: DOCUSATE SODIUM 100 MG CAPSULE PO SCH (08:24)
[2019-11-12] MEDS: LOSARTAN POTASSIUM 25 MG TABLET PO SCH (08:24)
[2019-11-12] MEDS: MIRALAX 17 GM POWD.PACK PO SCH (08:25)
[2019-11-12] MEDS: INSULIN GLARGINE,HUM 300 UNITS/3 ML CARTRIDGE SQ SCH (08:27)
[2019-11-12] MEDS: SPIRONOLACTONE 25 MG TABLET PO SCH (08:31)
[2019-11-12] MEDS: INSULIN REGULAR, HUMAN 300 UNIT/3 ML VIAL SQ PRN ×2 (08:31→11:27)
[2019-11-12 08:33] VITALS: BP 114/60
[2019-11-12] MEDS: METOPROLOL SUCCINATE XL 25 MG TAB.SR.24H PO SCH (08:33)
[2019-11-12] MEDS: QUETIAPINE FUMARATE 25 MG TABLET PO SCH (08:36)
--- NOTE | 2019-11-12 09:33 | NUR ---
Social Work Discharge Note: Patient will be discharged to long-term facility to [facility] [address] [place] [address]; ) via Ambulance transportation. Please arrange Ambulance transportation for patient to be picked up at 1:00PM. Fitness Club Manager spoke with GORAN, Commander Police Reserves at [facility]; , who stated patient will be accepted at facility today. Patient is alert and oriented x3-4, and is not able to plan for self-care at this time, but is willing to accept care provided for her at the facility. Patient denies any suicidal or homicidal ideation. Patient is aware and agreeable with discharge plans. Patient does not have any family members at the moment. Patient will continue to follow-up with her (Psychiatrist) Dr. Moore and (Dental Ceramist) Dr. Mello at [facility] [[address] [place] [address]; ). Patient will follow-up at the center. Patient presents with euthymic mood and congruent affect. Patient signed the homeless waiver upon discharge, copy was placed in the chart, and resources were given.
--- NOTE | 2019-11-12 10:02 | NUR ---
Patient will be discharge around 1pm in stable condition. Patient is alert and oriented x3-4, and is not able to plan for self-care at this time, but is willing to accept care provided for her at the facility.Patient will be discharged to prison facility to [facility] [address] [place] ; ) via Ambulance transportation. Patient denies any suicidal or homicidal ideation. Patient is aware and agreeable with discharge plans. Thermocouple Tester spoke with CJ, Signal Inspector at [facility]; , who stated patient will be accepted at facility today. Patient will continue to follow-up with her (Psychiatrist) Dr. Moore and (Brass Molder) Dr. Mello at [facility] [[address] [place] [address]; ). Patient will follow-up at the center. will endorse patient to SNF nurse.
--- NOTE | 2019-11-12 13:47 | NUR ---
PATIENT DISCHARGE AROUND 130PM IN STABLE CONDITION VIA AMBULANCE WITH 2 EMT. DENIES SUICIDAL IDEATION. NOT IN DISTRESS. MADE AWARE. REPORT GIVEN TO ANNY BISHOP TO [facility].
== END 2019-11-12 13:30 | DRG 885 ==
LOC: ER 15:49 → GPS 16:42
PROVIDERS: ADMIT Psychiatry & Neurology Psychiatry; ATTEND Hospitalist
DX: F25.9 Schizoaffective disorder, unspecified (principal); I11.0 Hypertensive heart disease with heart failure; E11.65 Type 2 diabetes mellitus with hyperglycemia; I50.23 Acute on chronic systolic (congestive) heart failure; E44.0 Moderate protein-calorie malnutrition; Z68.1 Body mass index [BMI] 19.9 or less, adult; D68.69 Other thrombophilia; J44.9 Chronic obstructive pulmonary disease, unspecified; Z87.01 Personal history of pneumonia (recurrent); F17.210 Nicotine dependence, cigarettes, uncomplicated; E83.42 Hypomagnesemia; M10.9 Gout, unspecified; D64.9 Anemia, unspecified; I25.10 Atherosclerotic heart disease of native coronary artery without angina pectoris; I25.2 Old myocardial infarction; I25.5 Ischemic cardiomyopathy; R62.7 Adult failure to thrive; F41.9 Anxiety disorder, unspecified; Z73.6 Limitation of activities due to disability; E88.09 Other disorders of plasma-protein metabolism, not elsewhere classified; Z68.21 Body mass index [BMI] 21.0-21.9, adult; Z95.810 Presence of automatic (implantable) cardiac defibrillator
CPT/HCPCS: 36415; 71045; 82652; 83735; 84100; 84443; 85025; 93307; A4663; J1650; J1815; J2060; J2358